=== PATIENT | female | born 2000 | race Two or more races ===

== ENCOUNTER 2020-10-31 11:10 | Day surgery (SDC) | payer OTHER ==
[~2020-10-31] VITALS: Ht 154.9 cm; Wt 53.8 kg
[~2020-10-31 11:10] MED LIST: ESCI5TAB8 PO; HYDR-826 PO
[2020-10-31 11:36] VITALS: BP 105/66
[2020-10-31] MEDS ORDERED: CHLORHEXIDINE 15 ML UDC ONE (11:42)
[2020-10-31 11:52] LABS: HCG UR SG 1.005 (1.003-1.030)
[2020-10-31] MEDS ORDERED: CHLORHEXIDINE 15 ML UDC PO ONE (12:00)
[2020-10-31] MEDS ORDERED: LACTATED RINGERS 1,000 ML IV SCH (12:00)
[2020-10-31] MEDS ORDERED: DEXAMETHASONE 4 MG/ML, 5ML ONE (12:55)
[2020-10-31] MEDS ORDERED: OXYMETAZOLINE NASAL SPRAY 0.05%,30ML ONE (12:55)
[2020-10-31] MEDS ORDERED: LORazepam 2 MG/ML, 1ML ONE (12:56)
[2020-10-31] MEDS ORDERED: PROPOFOL 50 ML ONE (12:57)
[2020-10-31] MEDS ORDERED: MIDAZOLAM 1 MG/ML, 2ML ONE (12:58)
[2020-10-31] MEDS ORDERED: FENTANYL PF 250 MCG/5ML ONE (12:58)
[2020-10-31] MEDS ORDERED: LORazepam 2 MG/ML, 1ML IVPush ONE (13:00)
[2020-10-31] MEDS ORDERED: PROMETHAZINE 25 MG/ML, 1ML IVPush PRN (13:30)
[2020-10-31] MEDS ORDERED: HYDROmorphone 1 MG/ML, 1ML INJ IVPush PRN (13:30)
[2020-10-31] MEDS ORDERED: SUCCINYLCHOLINE 20 MG/ML, 10ML ONE (13:30)
[2020-10-31] MEDS ORDERED: LABETALOL 5MG/ML, 20ML IV PRN (13:30)
[2020-10-31] MEDS ORDERED: PROPOFOL 10 MG/ML, 20ML ONE (13:30)
[2020-10-31] MEDS ORDERED: FENTANYL PF 100 MCG/2ML IV PRN (13:30)
[2020-10-31] MEDS ORDERED: ONDANSETRON 2MG/ML, 2ML ONE (13:30)
[2020-10-31] MEDS ORDERED: DIAZEPAM 5 MG/ML, 2ML IVPush PRN (13:30)
[2020-10-31] MEDS ORDERED: EPHEDRINE 50 MG/ML, 1ML IM PRN (13:30)
[2020-10-31] MEDS ORDERED: ROCURONIUM 10MG/ML,5ML ONE (13:30)
[2020-10-31] MEDS ORDERED: DEXAMETHASONE 4 MG/ML, 1ML ONE (13:30)
[2020-10-31] MEDS ORDERED: EPHEDRINE 50 MG/ML, 1ML IVPush PRN (13:30)
[2020-10-31] MEDS ORDERED: OXYcodone 5 MG/5 ML ORAL.SOL UDC PO PRN (13:30)
[2020-10-31] MEDS ORDERED: ONDANSETRON 2MG/ML, 2ML IVPush PRN (13:30)
[2020-10-31] MEDS ORDERED: DIPHENHYDRAMINE 50 MG/ML, 1ML IVPush PRN (13:30)
[2020-10-31] MEDS ORDERED: MEPERIDINE/PF 25MG/0.5ML IVPush PRN (13:30)
[2020-10-31] MEDS ORDERED: MEPERIDINE/PF 25MG/ML,1ML ONE (14:02)
[2020-10-31] MEDS ORDERED: OXYcodone 5 MG/5 ML ORAL.SOL UDC ONE (14:02)
[2020-10-31] MEDS ORDERED: ACETAMINOPHEN 650 MG/20.3 ML UDC ONE (14:03)
[2020-10-31] MEDS ORDERED: ACETAMINOPHEN 325 MG TABLET PO PRN (14:30)
== END 2020-10-31 16:30 | disposition home or self-care (01) ==
LOC: OR 11:10
PROVIDERS: ATTEND Otolaryngology
DX: J35.01 Chronic tonsillitis (principal); J35.8 Other chronic diseases of tonsils and adenoids; F41.9 Anxiety disorder, unspecified; Z20.822 Contact with and (suspected) exposure to COVID-19; Z79.899 Other long term (current) drug therapy; Z88.1 Allergy status to other antibiotic agents
CPT/HCPCS: 42821; 81025; 88300; J0330; J1100; J2060; J2175; J2250; J2405; J2704; J3010; J7120; U0003; U0005